=== PATIENT | female | born 1965 | race Caucasian/White ===

== ENCOUNTER → 2018-07-15 | Outpatient (CLI) | payer MEDICARE ==
[~2018-07-15] MED LIST: ACTEMRA SQ; BONIVA150 MG IV; CARVEDILOL12.5 MG PO; CYMBALTA60 MG PO; FOLIC ACID1 MG PO; GABAPENTIN400 MG PO; HYDROCODONE-AP1 EAC2; IOPAMIDOL 370 MG/ML 200 ML INFUS..BTL INJ ONE; NORCO 10-325 T1 EACH PO; NUCYNTA ER50 MG PO; PANTOPRAZOLE SO40 MG PO; SODIUM CHLORIDE 0.9% 100 ML 100 ML ONE; SODIUM CHLORIDE 0.9% 50ML 50 ML ONE; TRAMADOL HCL50 M1; ULTRAM 50MG50 MG PO; VIBERZI PO; Z SULFASALAZINE; Z.0.CYMBALTA60 MG; Z.0.FOLIC ACID1 MG; Z.0.NEXIUM40 MG; Z.0.ORENCIA 250 MG25; Z.0.PLAQUENIL200 MG; Z.0.PREDNISONE5 MG
[2018-07-15 11:49] LABS: BLOOD UREA NITROGEN 9 mg/dL (7-26); BUN/CREATININE RATIO 12 (6-25); CREATININE, SERUM 0.77 mg/dL (0.57-1.11); EST GLOMERULAR FILTRATION RATE > 60 ML/MIN (60-)
--- NOTE | 2018-07-16 07:15 | Diagnostic Imaging Report ---
History: Carotid stenosis Comparison studies:None Technique: Axial images were obtained from the thoracic inlet. Coronal and sagittal images reconstructed from the axial data. Additional multiplanar reformatted images as well as volume rendered 3-D reformats were created from the axial source data. Dose modulation, iterative reconstruction, and/or weight based adjustment of the mA/kV was utilized to reduce the radiation dose to as low as reasonably achievable. Intravenous contrast: 100 cc of Omnipaque 300. If present, stenosis is calculated utilizing the NASCET method which calculates the degree of stenosis with reference to the normal lumen of the carotid artery distal to the stenosis. Findings: Aortic arch and major vessels: Patent. Minimal calcified plaque. No other abnormalities. Common carotid arteries: Patent. No abnormalities. Carotid bulbs: No (0%) stenosis by NASCET criteria bilaterally. Minimal nonstenotic hard and soft plaque at the right carotid bulb. Right internal carotid artery: Patent. No abnormalities. Left internal carotid artery: Patent. No abnormalities. Right vertebral artery: The origin and proximal V1 segment of the right vertebral artery is without gross abnormality but suboptimally evaluated dense contrast within the adjacent vein. Otherwise, no abnormalities. Left vertebral artery: Patent. No abnormalities. The left vertebral artery is dominant. Included intracranial circulation: The internal carotid arteries, A1 and proximal A2 segments of the anterior cerebral arteries, M1 and proximal M2 segments of the middle cerebral arteries, vertebral arteries, basilar artery and proximal posterior cerebral arteries are patent. Anatomical variants include: hypoplastic V4 segment of the right vertebral artery, mild basilar hypoplasia and hypoplastic P1 BACK END ENGINEER segments with bilateral persistent BACK END ENGINEER origins. IMPRESSION: 1. Minimal atherosclerosis at the right carotid bulb. 2. No other arterial abnormalities. 3. No (0% stenosis) at the carotid bulbs by NASCET criteria. 4. Anatomical variants as described. Signed by: Dr. Bryon Reyes M.D. on 07/16/2018 7:12 AM
== END ==
LOC: CT 10:17
PROVIDERS: ATTEND Internal Medicine
DX: I65.29 Occlusion and stenosis of unspecified carotid artery (principal)
CPT/HCPCS: 36415; 70498; 82565; 84520; Q9967

== ENCOUNTER 2021-11-06 14:01 | Emergency (ER) | payer MEDICARE ==
[~2021-11-06] VITALS: Ht 157.5 cm; Wt 76.2 kg
[~2021-11-06 14:01] MED LIST changes: -IOPAMIDOL 370 MG/ML 200 ML INFUS..BTL INJ ONE; -SODIUM CHLORIDE 0.9% 100 ML 100 ML ONE; -SODIUM CHLORIDE 0.9% 50ML 50 ML ONE
[2021-11-06] MEDS ORDERED: Morphine 4mg Syringe 4 MG/ML INJ IV PRN (14:30)
[2021-11-06] MEDS ORDERED: ONDANSETRON HCL INJ 2MG/ML 2ML 2 MG/ML VIAL IV PRN (14:30)
[2021-11-06 14:40] LABS: BASOPHILS # (AUTO) 0.1 (0.0-0.1); BASOPHILS % 0.5 % (0.0-1.0); EOSINOPHILS # (AUTO) 0.3 (0.0-0.4); EOSINOPHILS % 2.6 % (0.0-6.0); HEMATOCRIT 41.6 % (34.2-44.1); HEMOGLOBIN 13.8 g/dL (12.0-16.0); LYMPHOCYTES # (AUTO) 7.6 (1.0-3.2); LYMPHOCYTES % 59.7 % (18.0-39.1); MEAN CORPUSCULAR HEMOGLOBIN 31.1 pg (28-32); MEAN CORPUSCULAR HGB CONC 33.2 g/dL (31-35); MEAN CORPUSCULAR VOLUME 93.7 fL (81-99); MONOCYTES # (AUTO) 0.6 (0.2-0.8); MONOCYTES % 4.8 % (4.4-11.3); NEUTROPHILS % 31.2 % (38.7-80.0); PLATELET COUNT 322 x10e3/uL (140-360); RED BLOOD COUNT 4.44 x10e6/uL (3.6-5.1); RED CELL DISTRIBUTION WIDTH 14.2 % (11.7-14.4)
[2021-11-06 14:59] LABS: ALBUMIN 3.5 g/dL (3.5-5.0); ALBUMIN/GLOBULIN RATIO 1.1 (0.8-2.0); ANION GAP 11.3 mmol/L (8-16); CALCIUM 9.3 mg/dL (8.4-10.2); CREATININE, SERUM 1.04 mg/dL (0.57-1.11); POTASSIUM 3.3 mmol/L (3.5-5.1)
[2021-11-06] MEDS ORDERED: DIPHENHYDRAMINE HCL INJ 50 MG/ML VIAL IV ONE (15:45)
[2021-11-06] MEDS ORDERED: METOCLOPRAMIDE HCL 10 MG/2ML VIAL IV ONE (15:45)
[2021-11-06] MEDS ORDERED: KETOROLAC TROMETHAMINE 30 MG/ML VIAL IV STA (16:26)
[2021-11-06] MEDS ORDERED: KETOROLAC TROME10 MG PEG (16:29)
[2021-11-06] MEDS ORDERED: ONDANSETRON ODT4 MG PO (16:29)
[2021-11-06] MEDS ORDERED: FLOMAX0.4 MG PO (16:29)
[2021-11-06] MEDS ORDERED: TAMSULOSIN HCL 0.4 MG CAP PO ONE (16:30)
[2021-11-06] MEDS ORDERED: CEFDINIR300 MG PO (17:00)
[2021-11-06] MEDS ORDERED: SODIUM CHLORIDE 0.9% 50ML 50 ML ONE (17:43)
[2021-11-06] MEDS ORDERED: IOPAMIDOL 370 MG/ML 200 ML INFUS..BTL INJ ONE (17:43)
[2021-11-06 19:06] LABS: EOSINOPHILS % (MANUAL) 3 % (0-7); LYMPHOCYTES % (MANUAL) 51 % (19-48); MONOCYTES % (MANUAL) 4 % (3.4-9.0); NEUTROPHILS % (MANUAL) 41 % (40-74)
[2021-11-06 19:08] LABS: PLATELET ESTIMATE ADEQUATE; PLATELET MORPHOLOGY COMMENT NORMAL
[2021-11-06 19:09] LABS: RBC MORPHOLOGY COMMENT NORMAL; SMUDGE CELLS FEW
== END 2021-11-06 17:10 | disposition home or self-care (01) ==
LOC: ER 15:37
DX: R10.32 Left lower quadrant pain (principal); N13.2 Hydronephrosis with renal and ureteral calculous obstruction; R11.2 Nausea with vomiting, unspecified; M06.9 Rheumatoid arthritis, unspecified; Z85.42 Personal history of malignant neoplasm of other parts of uterus; Z85.3 Personal history of malignant neoplasm of breast
CPT/HCPCS: 36415; 74177; 80053; 85025; 87086; 99284; J1200; J1885; J2270; J2405; J2765; Q9967

== ENCOUNTER 2022-01-05 15:19 | Emergency (ER) | payer MEDICARE ==
[~2022-01-05] VITALS: Ht 157.5 cm; Wt 76.2 kg
[~2022-01-05 15:19] MED LIST changes: +CEFDINIR300 MG PO; +FLOMAX0.4 MG PO; +KETOROLAC TROME10 MG PEG; +ONDANSETRON ODT4 MG PO
== END 2022-01-05 16:42 | disposition home or self-care (01) ==
LOC: ER 15:27
DX: R06.00 Dyspnea, unspecified (principal); J40 Bronchitis, not specified as acute or chronic; R05.9 Cough, unspecified; Z85.3 Personal history of malignant neoplasm of breast; Z85.42 Personal history of malignant neoplasm of other parts of uterus
CPT/HCPCS: 71046; 99282

== ENCOUNTER 2022-04-21 22:37 | Inpatient (IN) | payer MEDICARE ==
[~2022-04-21] VITALS: Ht 157.5 cm; Wt 87.5 kg
[2022-04-21 23:09] LABS: BASOPHILS # (AUTO) 0.1 (0.0-0.1); BASOPHILS % 0.6 % (0.0-1.0); EOSINOPHILS # (AUTO) 0.1 (0.0-0.4); EOSINOPHILS % 0.8 % (0.0-6.0); HEMATOCRIT 39.6 % (34.2-44.1); HEMOGLOBIN 12.8 g/dL (12.0-16.0); LYMPHOCYTES # (AUTO) 4.4 (1.0-3.2); LYMPHOCYTES % 34.2 % (18.0-39.1); MEAN CORPUSCULAR HEMOGLOBIN 32.2 pg (28-32); MEAN CORPUSCULAR HGB CONC 32.3 g/dL (31-35); MEAN CORPUSCULAR VOLUME 99.5 fL (81-99); MONOCYTES # (AUTO) 0.9 (0.2-0.8); MONOCYTES % 7.1 % (4.4-11.3); NEUTROPHILS # (AUTO) 7.2 (2.1-6.9); NEUTROPHILS % 56.8 % (38.7-80.0); PLATELET COUNT 395 x10e3/uL (140-360); RED BLOOD COUNT 3.98 x10e6/uL (3.6-5.1); RED CELL DISTRIBUTION WIDTH 13.3 % (11.7-14.4)
[2022-04-21 23:20] LABS: ALBUMIN 3.1 g/dL (3.5-5.0); ALBUMIN/GLOBULIN RATIO 0.8 (0.8-2.0); ANION GAP 17.7 mmol/L (8-16); CALCIUM 8.2 mg/dL (8.4-10.2); CREATININE, SERUM 0.96 mg/dL (0.57-1.11); POTASSIUM 3.7 mmol/L (3.5-5.1)
[2022-04-21] MEDS ORDERED: ACETAMINOPHEN 325 MG TAB PO STA (23:20)
[2022-04-21] MEDS ORDERED: SODIUM CHLORIDE 0.9% 1000ML 1,000 ML IV STA (23:29)
[2022-04-22] VITALS (12 sets, daily range): BP systolic 85–100; BP diastolic 47–71
[2022-04-22] MEDS ORDERED: IOPAMIDOL 370 MG/ML 100 ML INFUS..BTL INJ ONE (01:01)
[2022-04-22] MEDS ORDERED: SODIUM CHLORIDE FLUSH 10 ML SYR INJ PRN (01:15)
[2022-04-22] MEDS: FUROSEMIDE INJ 10 MG/ML 4 ML VIAL IV SCH ×2 (01:43→09:00)
[2022-04-22] MEDS: FUROSEMIDE INJ 100 MG in SODIUM CHLORIDE 0.9% 90 ML IV SCH ×2 (12:30→23:09)
[2022-04-22] MEDS ORDERED: BUSPIRONE HCL5 MG PO (13:38)
[2022-04-22] MEDS ORDERED: ALPRAZOLAM0.5 MG PO (13:38)
[2022-04-22] MEDS ORDERED: PROMETHAZINE HC25 M1 PO (13:38)
[2022-04-22] MEDS ORDERED: PREDNISONE10 MG PO (13:38)
[2022-04-22] MEDS ORDERED: BENZONATATE200 MG PO (13:38)
[2022-04-22] MEDS ORDERED: HYDROXYZINE HCL10 MG PO (13:38)
[2022-04-22] MEDS ORDERED: [UNRECOGNIZED DRUG - OTHER] IV (13:43)
[2022-04-22] MEDS ORDERED: BENZONATATE 100 MG CAP PO PRN (13:45)
[2022-04-22] MEDS ORDERED: ALPRAZOLAM 0.5 MG TAB PO PRN (13:50)
[2022-04-22 14:51] LABS: CREATINE KINASE MB 0.7 ng/mL (0-5.0)
[2022-04-22] MEDS: GABAPENTIN 400 MG CAP PO SCH ×2 (15:00→20:40)
[2022-04-22] MEDS: TRAMADOL HCL 50 MG TAB PO PRN (15:13)
[2022-04-22] MEDS: HYDROCODONE/APAP 10MG-325MG TAB PO SCH (20:39)
[2022-04-22] MEDS: BUSPIRONE HCL 5 MG TAB PO SCH (20:40)
[2022-04-23] VITALS (8 sets, daily range): BP systolic 81–110; BP diastolic 62–79
[2022-04-23 07:28] LABS: BASOPHILS # (AUTO) 0.1 (0.0-0.1); BASOPHILS % 0.5 % (0.0-1.0); EOSINOPHILS # (AUTO) 0.3 (0.0-0.4); EOSINOPHILS % 2.2 % (0.0-6.0); HEMATOCRIT 41.2 % (34.2-44.1); HEMOGLOBIN 13.5 g/dL (12.0-16.0); LYMPHOCYTES # (AUTO) 4.1 (1.0-3.2); LYMPHOCYTES % 36.4 % (18.0-39.1); MEAN CORPUSCULAR HEMOGLOBIN 31.5 pg (28-32); MEAN CORPUSCULAR HGB CONC 32.8 g/dL (31-35); MEAN CORPUSCULAR VOLUME 96.3 fL (81-99); MONOCYTES % 8.9 % (4.4-11.3); NEUTROPHILS # (AUTO) 5.8 (2.1-6.9); NEUTROPHILS % 51.6 % (38.7-80.0); PLATELET COUNT 375 x10e3/uL (140-360); RED BLOOD COUNT 4.28 x10e6/uL (3.6-5.1)
[2022-04-23] MEDS ORDERED: PANTOPRAZOLE SOD 40 MG TABEC PO SCH (07:30)
[2022-04-23 07:57] LABS: ALBUMIN/GLOBULIN RATIO 0.7 (0.8-2.0); ANION GAP 20.1 mmol/L (8-16); CALCIUM 7.1 mg/dL (8.4-10.2); CREATININE, SERUM 1.12 mg/dL (0.57-1.11); POTASSIUM 3.1 mmol/L (3.5-5.1)
[2022-04-23] MEDS ORDERED: POTASSIUM CHLORIDE 20MEQ/100ML 200 ML IV ONE (08:45)
[2022-04-23] MEDS: BUSPIRONE HCL 5 MG TAB PO SCH ×3 (09:28→21:10)
[2022-04-23] MEDS: FOLIC ACID 1 MG TAB PO SCH (09:28)
[2022-04-23] MEDS: DULOXETINE HCL 30 MG DELAYED RELEASE PO SCH (09:28)
[2022-04-23] MEDS: GABAPENTIN 400 MG CAP PO SCH ×3 (09:28→21:10)
[2022-04-23] MEDS: TRAMADOL HCL 50 MG TAB PO PRN ×2 (09:42→16:21)
[2022-04-23] MEDS: ONDANSETRON HCL INJ 2MG/ML 2ML 2 MG/ML VIAL IV PRN ×2 (10:48→21:10)
[2022-04-23] MEDS: PANTOPRAZOLE SOD 40 MG TABEC PO SCH (16:20)
[2022-04-23] MEDS ORDERED: SODIUM CHLORIDE 0.9% 250ML 250 ML ONE (17:45)
[2022-04-23] MEDS ORDERED: POTASSIUM CHLORIDE 20 MEQ TAB CR PO ONE (19:00)
[2022-04-23] MEDS: FUROSEMIDE INJ 10 MG/ML 4 ML VIAL IV SCH (21:10)
[2022-04-23] MEDS: HYDROCODONE/APAP 10MG-325MG TAB PO SCH (21:14)
[2022-04-24] VITALS (7 sets, daily range): BP systolic 88–108; BP diastolic 50–96
[2022-04-24 07:45] LABS: BASOPHILS # (AUTO) 0.1 (0.0-0.1); BASOPHILS % 0.6 % (0.0-1.0); EOSINOPHILS # (AUTO) 0.4 (0.0-0.4); EOSINOPHILS % 3.1 % (0.0-6.0); HEMATOCRIT 38.7 % (34.2-44.1); HEMOGLOBIN 13.8 g/dL (12.0-16.0); LYMPHOCYTES # (AUTO) 5.5 (1.0-3.2); LYMPHOCYTES % 47.4 % (18.0-39.1); MEAN CORPUSCULAR HEMOGLOBIN 35.4 pg (28-32); MEAN CORPUSCULAR HGB CONC 35.7 g/dL (31-35); MEAN CORPUSCULAR VOLUME 99.2 fL (81-99); MONOCYTES % 8.5 % (4.4-11.3); NEUTROPHILS # (AUTO) 4.6 (2.1-6.9); NEUTROPHILS % 40.1 % (38.7-80.0); PLATELET COUNT 411 x10e3/uL (140-360); RED CELL DISTRIBUTION WIDTH 13.5 % (11.7-14.4)
[2022-04-24] MEDS: FUROSEMIDE INJ 10 MG/ML 4 ML VIAL IV SCH (08:16)
[2022-04-24] MEDS: PANTOPRAZOLE SOD 40 MG TABEC PO SCH ×2 (08:17→16:26)
[2022-04-24] MEDS: DULOXETINE HCL 30 MG DELAYED RELEASE PO SCH (08:17)
[2022-04-24] MEDS: FOLIC ACID 1 MG TAB PO SCH (08:17)
[2022-04-24] MEDS: GABAPENTIN 400 MG CAP PO SCH ×3 (08:17→21:45)
[2022-04-24] MEDS: TRAMADOL HCL 50 MG TAB PO PRN ×2 (08:18→15:39)
[2022-04-24] MEDS: BUSPIRONE HCL 5 MG TAB PO SCH ×3 (08:18→21:45)
[2022-04-24 08:21] LABS: ALBUMIN/GLOBULIN RATIO 0.7 (0.8-2.0); ANION GAP 21.4 mmol/L (8-16); CALCIUM 7.4 mg/dL (8.4-10.2); CREATININE, SERUM 1.56 mg/dL (0.57-1.11); POTASSIUM 3.4 mmol/L (3.5-5.1)
[2022-04-24 08:48] LABS: BAND NEUTROPHILS % (MANUAL) 1 %; EOSINOPHILS % (MANUAL) 4 % (0-7); LYMPHOCYTES % (MANUAL) 49 % (19-48); MONOCYTES % (MANUAL) 6 % (3.4-9.0); NEUTROPHILS % (MANUAL) 38 % (40-74); PLATELET ESTIMATE ADEQUATE; PLATELET MORPHOLOGY COMMENT NORMAL; RBC MORPHOLOGY COMMENT NORMAL
[2022-04-24 18:48] LABS: ANION GAP 19.3 mmol/L (8-16); CALCIUM 7.3 mg/dL (8.4-10.2); CREATININE, SERUM 1.5 mg/dL (0.57-1.11); POTASSIUM 3.3 mmol/L (3.5-5.1)
[2022-04-25] VITALS (8 sets, daily range): BP systolic 100–123; BP diastolic 55–71
[2022-04-25] MEDS: HYDROCODONE/APAP 10MG-325MG TAB PO SCH ×2 (01:20→22:24)
[2022-04-25 06:28] LABS: BASOPHILS # (AUTO) 0.1 (0.0-0.1); BASOPHILS % 0.5 % (0.0-1.0); EOSINOPHILS # (AUTO) 0.6 (0.0-0.4); EOSINOPHILS % 5.3 % (0.0-6.0); HEMATOCRIT 36.9 % (34.2-44.1); HEMOGLOBIN 13.1 g/dL (12.0-16.0); LYMPHOCYTES # (AUTO) 5.2 (1.0-3.2); LYMPHOCYTES % 44.4 % (18.0-39.1); MEAN CORPUSCULAR HEMOGLOBIN 34.8 pg (28-32); MEAN CORPUSCULAR HGB CONC 35.5 g/dL (31-35); MEAN CORPUSCULAR VOLUME 98.1 fL (81-99); MONOCYTES # (AUTO) 1.1 (0.2-0.8); MONOCYTES % 8.9 % (4.4-11.3); NEUTROPHILS # (AUTO) 4.8 (2.1-6.9); NEUTROPHILS % 40.4 % (38.7-80.0); PLATELET COUNT 387 x10e3/uL (140-360); RED BLOOD COUNT 3.76 x10e6/uL (3.6-5.1); RED CELL DISTRIBUTION WIDTH 13.2 % (11.7-14.4)
[2022-04-25 07:01] LABS: ALBUMIN 2.9 g/dL (3.5-5.0); ALBUMIN/GLOBULIN RATIO 0.7 (0.8-2.0); ANION GAP 17.2 mmol/L (8-16); CALCIUM 7.4 mg/dL (8.4-10.2); CREATININE, SERUM 1.17 mg/dL (0.57-1.11); POTASSIUM 3.2 mmol/L (3.5-5.1)
[2022-04-25] MEDS: GABAPENTIN 400 MG CAP PO SCH ×3 (08:58→22:24)
[2022-04-25] MEDS ORDERED: FUROSEMIDE INJ 10 MG/ML 4 ML VIAL IV SCH (09:00)
[2022-04-25] MEDS: FOLIC ACID 1 MG TAB PO SCH (09:00)
[2022-04-25] MEDS: METOPROLOL SUCCINATE 25 MG TAB XL PO SCH (09:01)
[2022-04-25] MEDS: BUSPIRONE HCL 5 MG TAB PO SCH ×3 (09:01→22:24)
[2022-04-25] MEDS: DULOXETINE HCL 30 MG DELAYED RELEASE PO SCH (09:02)
[2022-04-25] MEDS: PANTOPRAZOLE SOD 40 MG TABEC PO SCH ×2 (09:02→18:36)
[2022-04-26] VITALS (8 sets, daily range): BP systolic 98–119; BP diastolic 47–87
[2022-04-26] MEDS: GABAPENTIN 400 MG CAP PO SCH ×3 (09:00→20:16)
[2022-04-26] MEDS: FOLIC ACID 1 MG TAB PO SCH (09:00)
[2022-04-26] MEDS: BUSPIRONE HCL 5 MG TAB PO SCH ×3 (09:00→20:17)
[2022-04-26] MEDS: PANTOPRAZOLE SOD 40 MG TABEC PO SCH ×2 (09:00→20:19)
[2022-04-26] MEDS: METOPROLOL SUCCINATE 25 MG TAB XL PO SCH (09:00)
[2022-04-26 09:52] LABS: ANION GAP 13.5 mmol/L (8-16); CALCIUM 7.5 mg/dL (8.4-10.2); CREATININE, SERUM 0.86 mg/dL (0.57-1.11); POTASSIUM 3.5 mmol/L (3.5-5.1)
[2022-04-26] MEDS ORDERED: LIDOCAINE HCL 2% LOCAL 20 ML VIAL ONE (15:48)
[2022-04-26] MEDS ORDERED: HEPARIN SOD/SOD CHLORIDE 2,000 ML ONE (15:48)
[2022-04-26] MEDS ORDERED: IOPAMIDOL 370 MG/ML 100 ML INFUS..BTL INJ ONE (15:53)
[2022-04-26] MEDS ORDERED: VERAPAMIL HCL 2.5 MG/ML 2 ML VIAL ONE (15:56)
[2022-04-26] MEDS ORDERED: SODIUM CHLORIDE 0.9% 1000ML 1,000 ML ONE (15:57)
[2022-04-26] MEDS ORDERED: MIDAZOLAM HCL 2 MG/2 ML VIAL ONE ×2 (15:57→16:21)
[2022-04-26] MEDS ORDERED: FENTANYL CITRATE/PF 100MCG/2 ML INJ ONE (15:57)
[2022-04-26] MEDS ORDERED: HEPARIN SOD (PORCINE) 1000 UNIT/ML 30ML ONE (15:58)
[2022-04-26] MEDS: LISINOPRIL 2.5 MG TAB PO SCH (16:30)
[2022-04-26] MEDS: HYDROCODONE/APAP 10MG-325MG TAB PO SCH (20:17)
[2022-04-26] MEDS: DULOXETINE HCL 30 MG DELAYED RELEASE PO SCH (20:19)
[2022-04-27 00:32] VITALS: BP 93/62
[2022-04-27 04:23] VITALS: BP 103/58
[2022-04-27 08:00] VITALS: BP 96/80
[2022-04-27 08:22] VITALS: BP 144/95
[2022-04-27] MEDS: LISINOPRIL 2.5 MG TAB PO SCH (09:00)
[2022-04-27] MEDS: PANTOPRAZOLE SOD 40 MG TABEC PO SCH (09:10)
[2022-04-27] MEDS: DULOXETINE HCL 30 MG DELAYED RELEASE PO SCH (09:10)
[2022-04-27] MEDS: BUSPIRONE HCL 5 MG TAB PO SCH (09:10)
[2022-04-27] MEDS: FOLIC ACID 1 MG TAB PO SCH (09:10)
[2022-04-27] MEDS: GABAPENTIN 400 MG CAP PO SCH (09:20)
[2022-04-27] MEDS ORDERED: PRAVASTATIN SOD20 MG PO (10:09)
[2022-04-27] MEDS ORDERED: TOPROL XL25 MG PO (10:09)
[2022-04-27] MEDS ORDERED: CEPHALEXIN500 MG PO (10:09)
[2022-04-27] MEDS ORDERED: ECOTRIN81 MG PO (10:09)
[2022-04-27] MEDS ORDERED: LISINOPRIL2.5 MG PO (10:09)
[2022-04-27 11:54] VITALS: BP 99/88
== END 2022-04-27 14:11 | disposition home or self-care (01) | DRG 871 ==
LOC: ER 22:43 → ERHOLD 04-22 01:25 → ICU 04-22 03:11 → MED/SURG3 04-23 15:04
PROVIDERS: ADMIT Internal Medicine; ATTEND Internal Medicine
PROC: 4A023N7 Measurement of Cardiac Sampling and Pressure, Left Heart, Percutaneous Approach (ICD-10-PCS; principal; 2022-04-22)
PROC: B2111ZZ Fluoroscopy of Multiple Coronary Arteries using Low Osmolar Contrast (ICD-10-PCS; 2022-04-22)
PROC: 02HV33Z Insertion of Infusion Device into Superior Vena Cava, Percutaneous Approach (ICD-10-PCS; 2022-04-22)
PROC: 3E04329 Introduction of Other Anti-infective into Central Vein, Percutaneous Approach (ICD-10-PCS; 2022-04-22)
DX: A41.9 Sepsis, unspecified organism (principal); I50.23 Acute on chronic systolic (congestive) heart failure; J96.01 Acute respiratory failure with hypoxia; N17.9 Acute kidney failure, unspecified; I11.0 Hypertensive heart disease with heart failure; R65.20 Severe sepsis without septic shock; K76.0 Fatty (change of) liver, not elsewhere classified; M06.9 Rheumatoid arthritis, unspecified; R60.0 Localized edema; Z85.3 Personal history of malignant neoplasm of breast; E78.5 Hyperlipidemia, unspecified; I44.7 Left bundle-branch block, unspecified; E87.6 Hypokalemia
CPT/HCPCS: 36415; 36569; 71045; 71260; 76937; 80048; 80053; 82550; 82553; 83605; 83690; 83735; 83880; 84484; 85025; 85379; 87040; 93005; 93306; 93458; 94799; 99152; 99153; 99251; 99284; C1887; J1644; J1940; J2001; J2250; J2405; J2543; J3010; J3480; J7030; J7050; Q9967

== ENCOUNTER 2022-07-18 17:34 | Inpatient (IN) | payer MEDICARE ==
[~2022-07-18] VITALS: Ht 157.5 cm; Wt 85.3 kg
[~2022-07-18 17:34] MED LIST changes: +ALPRAZOLAM0.5 MG PO; +BENZONATATE200 MG PO; +BUSPIRONE HCL5 MG PO; +CEPHALEXIN500 MG PO; +ECOTRIN81 MG PO; +HYDROXYZINE HCL10 MG PO; +LISINOPRIL2.5 MG PO; +PRAVASTATIN SOD20 MG PO; +PREDNISONE10 MG PO; +PROMETHAZINE HC25 M1 PO; +TOPROL XL25 MG PO; +[UNRECOGNIZED DRUG - OTHER] IV
[2022-07-18] MEDS ORDERED: SODIUM CHLORIDE 0.9% 500ML 500 ML IV ONE ×2 (18:00→19:30)
[2022-07-18 18:14] LABS: BASOPHILS % 0.5 % (0.0-1.0); EOSINOPHILS # (AUTO) 0.1 (0.0-0.4); EOSINOPHILS % 1.8 % (0.0-6.0); HEMATOCRIT 38.4 % (34.2-44.1); HEMOGLOBIN 12.5 g/dL (12.0-16.0); LYMPHOCYTES # (AUTO) 4.6 (1.0-3.2); MEAN CORPUSCULAR HEMOGLOBIN 30.6 pg (28-32); MEAN CORPUSCULAR HGB CONC 32.6 g/dL (31-35); MEAN CORPUSCULAR VOLUME 94.1 fL (81-99); MONOCYTES # (AUTO) 0.3 (0.2-0.8); MONOCYTES % 3.7 % (4.4-11.3); NEUTROPHILS # (AUTO) 2.6 (2.1-6.9); NEUTROPHILS % 33.6 % (38.7-80.0); PLATELET COUNT 232 x10e3/uL (140-360); RED BLOOD COUNT 4.08 x10e6/uL (3.6-5.1); RED CELL DISTRIBUTION WIDTH 15.9 % (11.7-14.4)
[2022-07-18 18:28] LABS: ALBUMIN 3.5 g/dL (3.5-5.0); ALBUMIN/GLOBULIN RATIO 1.1 (0.8-2.0); ANION GAP 14.8 mmol/L (8-16); CALCIUM 9.2 mg/dL (8.4-10.2); CREATININE, SERUM 1.5 mg/dL (0.57-1.11); POTASSIUM 3.8 mmol/L (3.5-5.1)
[2022-07-18] MEDS ORDERED: SODIUM CHLORIDE 0.9% 1000ML 1,000 ML IV ONE ×2 (19:00→21:30)
[2022-07-18] MEDS ORDERED: IOPAMIDOL 370 MG/ML 100 ML INFUS..BTL INJ ONE (19:20)
[2022-07-18] MEDS ORDERED: SODIUM CHLORIDE FLUSH 10 ML SYR INJ PRN (21:30)
[2022-07-18 23:30] VITALS: BP 94/51
[2022-07-18] MEDS ORDERED: ACETAMINOPHEN 325 MG TAB PO PRN (23:30)
[2022-07-18 23:34] LABS: CLARITY,URINE CLEAR (CLEAR); COLOR,URINE YELLOW (YELLOW); KETONES,URINE NEGATIVE (NEGATIVE); LEUKOCYTE ESTERASE ,URINE NEGATIVE (NEGATIVE); NITRITE,URINE NEGATIVE (NEGATIVE); PROTEIN,URINE DIPSTICK NEGATIVE (NEGATIVE); URINE UROBILINOGEN 0.2 mg/dL (0.2 - 1)
[2022-07-18 23:36] VITALS: BP 77/51
[2022-07-18 23:42] LABS: BACTERIA,URINE FEW /HPF; EPITHELIAL CELLS,URINE MODERATE /LPF; RBC,URINE 0-5 /HPF (0-5); WBC,URINE (MAN) 0-5 /HPF (0-5)
[2022-07-18 23:45] VITALS: BP 76/40
[2022-07-19] VITALS (29 sets, daily range): BP systolic 71–108; BP diastolic 45–79
[2022-07-19 01:34] LABS: CREATINE KINASE 13 IU/L (29-168)
[2022-07-19 05:11] LABS: BASOPHILS % 0.4 % (0.0-1.0); EOSINOPHILS # (AUTO) 0.2 (0.0-0.4); EOSINOPHILS % 2.1 % (0.0-6.0); HEMATOCRIT 33.2 % (34.2-44.1); HEMOGLOBIN 10.6 g/dL (12.0-16.0); LYMPHOCYTES # (AUTO) 4.9 (1.0-3.2); LYMPHOCYTES % 67.6 % (18.0-39.1); MEAN CORPUSCULAR HEMOGLOBIN 29.9 pg (28-32); MEAN CORPUSCULAR HGB CONC 31.9 g/dL (31-35); MEAN CORPUSCULAR VOLUME 93.5 fL (81-99); MONOCYTES # (AUTO) 0.2 (0.2-0.8); MONOCYTES % 2.2 % (4.4-11.3); NEUTROPHILS % 27.4 % (38.7-80.0); PLATELET COUNT 184 x10e3/uL (140-360); RED BLOOD COUNT 3.55 x10e6/uL (3.6-5.1); RED CELL DISTRIBUTION WIDTH 15.9 % (11.7-14.4)
[2022-07-19 05:28] LABS: ALBUMIN 2.8 g/dL (3.5-5.0); ALBUMIN/GLOBULIN RATIO 1.2 (0.8-2.0); ANION GAP 12.3 mmol/L (8-16); CALCIUM 8.3 mg/dL (8.4-10.2); CREATININE, SERUM 1.01 mg/dL (0.57-1.11); POTASSIUM 3.3 mmol/L (3.5-5.1)
[2022-07-19] MEDS ORDERED: LOPERAMIDE HCL 2 MG CAP PO PRN (09:30)
[2022-07-19] MEDS ORDERED: ONDANSETRON HCL INJ 2MG/ML 2ML 2 MG/ML VIAL IV PRN (09:30)
[2022-07-19] MEDS ORDERED: HYDROCODONE/APAP 10MG-325MG TAB PO PRN (11:30)
[2022-07-19] MEDS: ASPIRIN 81 MG ENTERIC COATED PO SCH (11:39)
[2022-07-19] MEDS: FOLIC ACID 1 MG TAB PO SCH (11:40)
[2022-07-19 13:12] LABS: CREATINE KINASE 20 IU/L (29-168)
[2022-07-19] MEDS ORDERED: POTASSIUM CHLORIDE 20 MEQ TAB CR PO ONE (15:15)
[2022-07-19] MEDS ORDERED: METHOTREXATE2.5 MG PO (16:22)
[2022-07-19] MEDS ORDERED: EXCEDRIN MIGRA1 EAC3 PO (16:22)
[2022-07-19] MEDS ORDERED: CARVEDILOL3.125 MG PO (16:22)
[2022-07-19] MEDS ORDERED: FUROSEMIDE40 MG PO (16:22)
[2022-07-19] MEDS ORDERED: IPRATROPIUM (16:22)
[2022-07-19] MEDS ORDERED: CYCLOBENZAPRINE10 MG PO (16:22)
[2022-07-19] MEDS ORDERED: PLAQUENIL200 MG PO (16:22)
[2022-07-19] MEDS ORDERED: DOXEPIN HCL25 MG PO (16:22)
[2022-07-19] MEDS ORDERED: JARDIANCE10 MG PO (16:22)
[2022-07-19] MEDS: POTASSIUM CHLORIDE 20 MEQ TAB CR PO ONE ×2 (18:20→18:34)
[2022-07-19] MEDS ORDERED: POTASSIUM CHLORIDE 10MEQ EA PO ONE (20:00)
[2022-07-19 20:05] LABS: CREATINE KINASE MB 0.7 ng/mL (0-5.0)
[2022-07-19] MEDS ORDERED: PRAVASTATIN 20 MG TAB PO SCH (21:00)
[2022-07-20] VITALS: BP 104/70
[2022-07-20 04:00] VITALS: BP 101/54
[2022-07-20 05:57] LABS: BASOPHILS % 0.3 % (0.0-1.0); EOSINOPHILS # (AUTO) 0.3 (0.0-0.4); EOSINOPHILS % 4.1 % (0.0-6.0); HEMATOCRIT 33.8 % (34.2-44.1); HEMOGLOBIN 10.7 g/dL (12.0-16.0); LYMPHOCYTES # (AUTO) 3.6 (1.0-3.2); LYMPHOCYTES % 54.8 % (18.0-39.1); MEAN CORPUSCULAR HEMOGLOBIN 29.3 pg (28-32); MEAN CORPUSCULAR HGB CONC 31.7 g/dL (31-35); MEAN CORPUSCULAR VOLUME 92.6 fL (81-99); MONOCYTES # (AUTO) 0.2 (0.2-0.8); MONOCYTES % 2.7 % (4.4-11.3); NEUTROPHILS # (AUTO) 2.5 (2.1-6.9); NEUTROPHILS % 37.9 % (38.7-80.0); PLATELET COUNT 173 x10e3/uL (140-360); RED BLOOD COUNT 3.65 x10e6/uL (3.6-5.1); RED CELL DISTRIBUTION WIDTH 15.4 % (11.7-14.4)
[2022-07-20 06:18] LABS: ALBUMIN 2.8 g/dL (3.5-5.0); ANION GAP 10.7 mmol/L (8-16); CALCIUM 8.6 mg/dL (8.4-10.2); CREATININE, SERUM 0.84 mg/dL (0.57-1.11); POTASSIUM 3.7 mmol/L (3.5-5.1)
[2022-07-20 07:37] VITALS: BP 110/67
[2022-07-20] MEDS ORDERED: FUROSEMIDE 40 MG TAB PO SCH (09:00)
[2022-07-20] MEDS: ASPIRIN 81 MG ENTERIC COATED PO SCH (09:19)
[2022-07-20] MEDS: FOLIC ACID 1 MG TAB PO SCH (09:19)
[2022-07-20 09:21] VITALS: BP 110/67
[2022-07-20] MEDS ORDERED: PANTOPRAZOLE SOD 40 MG TABEC PO SCH (10:00)
[2022-07-20] MEDS ORDERED: ONDANSETRON HCL 4 MG ORAL DISINTEGRATING TAB PO PRN (11:15)
[2022-07-20 11:34] VITALS: BP 107/89
[2022-07-20] MEDS ORDERED: LISINOPRIL2.5 MG PO (11:38)
== END 2022-07-20 13:31 | disposition home or self-care (01) | DRG 291 ==
LOC: ER 17:42 → ERHOLD 21:33 → ICU 23:31 → MED/SURG2 07-19 18:54
PROVIDERS: ADMIT Internal Medicine; ATTEND Internal Medicine
DX: I11.0 Hypertensive heart disease with heart failure (principal); I50.23 Acute on chronic systolic (congestive) heart failure; N17.9 Acute kidney failure, unspecified; R09.02 Hypoxemia; E86.1 Hypovolemia; M06.9 Rheumatoid arthritis, unspecified; E87.6 Hypokalemia; E86.0 Dehydration; F17.200 Nicotine dependence, unspecified, uncomplicated; Z87.440 Personal history of urinary (tract) infections; Z85.42 Personal history of malignant neoplasm of other parts of uterus; Z85.3 Personal history of malignant neoplasm of breast; Z20.822 Contact with and (suspected) exposure to COVID-19
CPT/HCPCS: 0223U; 36415; 36569; 71045; 71260; 80053; 81001; 82550; 82553; 83605; 83880; 84484; 85025; 85379; 87040; 93005; 94799; 99284; J7030; J7040; Q9967

== ENCOUNTER 2023-04-12 20:04 | Observation (INO) | payer MEDICARE ==
[~2023-04-12] VITALS: Ht 160 cm; Wt 78.9 kg
[~2023-04-12 20:04] MED LIST changes: +CARVEDILOL3.125 MG PO; +CYCLOBENZAPRINE10 MG PO; +DOXEPIN HCL25 MG PO; +EXCEDRIN MIGRA1 EAC3 PO; +FUROSEMIDE40 MG PO; +IPRATROPIUM; +JARDIANCE10 MG PO; +METHOTREXATE2.5 MG PO; +PLAQUENIL200 MG PO
[2023-04-12] MEDS ORDERED: ONDANSETRON HCL INJ 2MG/ML 2ML 2 MG/ML VIAL IV STA (20:18)
[2023-04-12] MEDS ORDERED: ONDANSETRON HCL INJ 2MG/ML 2ML 2 MG/ML VIAL ONE (20:19)
[2023-04-12 20:28] LABS: BASOPHILS % 0.4 % (0.0-1.0); EOSINOPHILS # (AUTO) 0.2 (0.0-0.4); EOSINOPHILS % 2.3 % (0.0-6.0); HEMATOCRIT 38.3 % (34.2-44.1); HEMOGLOBIN 12.7 g/dL (12.0-16.0); LYMPHOCYTES # (AUTO) 2.9 (1.0-3.2); LYMPHOCYTES % 42.3 % (18.0-39.1); MEAN CORPUSCULAR HEMOGLOBIN 29.4 pg (28-32); MEAN CORPUSCULAR HGB CONC 33.2 g/dL (31-35); MEAN CORPUSCULAR VOLUME 88.7 fL (81-99); MONOCYTES # (AUTO) 0.5 (0.2-0.8); MONOCYTES % 7.1 % (4.4-11.3); NEUTROPHILS # (AUTO) 3.3 (2.1-6.9); NEUTROPHILS % 47.8 % (38.7-80.0); PLATELET COUNT 226 x10e3/uL (140-360); RED BLOOD COUNT 4.32 x10e6/uL (3.6-5.1); RED CELL DISTRIBUTION WIDTH 17.3 % (11.7-14.4)
[2023-04-12 20:46] LABS: ALBUMIN 3.7 g/dL (3.5-5.0); ALBUMIN/GLOBULIN RATIO 1.4 (0.8-2.0); ANION GAP 15.7 mmol/L (8-16); CREATININE, SERUM 1.04 mg/dL (0.57-1.11); POTASSIUM 3.7 mmol/L (3.5-5.1)
[2023-04-12] MEDS ORDERED: ONDANSETRON HCL INJ 2MG/ML 2ML 2 MG/ML VIAL IV PRN (21:30)
[2023-04-12] MEDS ORDERED: SODIUM CHLORIDE FLUSH 10 ML SYR INJ PRN (21:30)
[2023-04-12 23:00] VITALS: BP 102/48; PULSE 85; RESP 18; TEMP 98.3; O2SAT 97
[2023-04-13] VITALS: BP 100/52; PULSE 74; RESP 18; TEMP 98; O2SAT 98
[2023-04-13] MEDS ORDERED: AMBIEN10 MG PO (00:18)
[2023-04-13] MEDS ORDERED: HYDROCODONE/APAP 10MG-325MG TAB PO PRN (01:00)
[2023-04-13] MEDS ORDERED: HYDROXYZINE HCL 25 MG TAB PO PRN (01:00)
[2023-04-13] MEDS ORDERED: ZOLPIDEM TARTRATE 10 MG TAB PO SCH (01:00)
[2023-04-13] MEDS ORDERED: PROMETHAZINE HCL 25 MG TAB PO PRN (01:00)
[2023-04-13] MEDS ORDERED: ALPRAZOLAM 0.5 MG TAB PO PRN (01:00)
[2023-04-13 04:00] VITALS: BP 103/55; PULSE 67; RESP 18; TEMP 98.4; O2SAT 98
[2023-04-13 06:07] LABS: CHOL/HDL RATIO 3.8 (3.0-3.6); CREATINE KINASE 25 IU/L (29-168)
[2023-04-13] MEDS ORDERED: FOLIC ACID 1 MG TAB PO SCH (09:00)
[2023-04-13] MEDS ORDERED: BENZONATATE 100 MG CAP PO SCH (09:00)
[2023-04-13] MEDS ORDERED: PANTOPRAZOLE SOD 40 MG TABEC PO SCH (09:00)
[2023-04-13] MEDS ORDERED: BUSPIRONE HCL 5 MG TAB PO SCH (09:00)
[2023-04-13] MEDS ORDERED: LISINOPRIL 2.5 MG TAB PO SCH (09:00)
[2023-04-13] MEDS ORDERED: GABAPENTIN 400 MG CAP PO SCH (09:00)
[2023-04-13] MEDS ORDERED: ASPIRIN 81 MG ENTERIC COATED PO SCH ×2 (09:00)
[2023-04-13] MEDS ORDERED: DULOXETINE HCL 30 MG DELAYED RELEASE PO SCH (09:00)
[2023-04-13 09:17] VITALS: BP 103/55; PULSE 67; RESP 18; TEMP 98.4; O2SAT 98
[2023-04-13 09:50] VITALS: BP 114/69; PULSE 91; RESP 16; TEMP 98.4; O2SAT 99
[2023-04-13 12:24] VITALS: BP 98/51; PULSE 86; RESP 17; TEMP 98.1; O2SAT 98
[2023-04-13] MEDS ORDERED: CYCLOBENZAPRINE HCL 10 MG TAB PO SCH (21:00)
[2023-04-13] MEDS ORDERED: PRAVASTATIN 20 MG TAB PO SCH (21:00)
[2023-04-14] MEDS ORDERED: ASPIRIN 81 MG ENTERIC COATED PO SCH (09:00)
[2023-04-17] MEDS ORDERED: METHOTREXATE SOD 2.5 MG TAB PO SCH (09:00)
== END 2023-04-13 12:59 | disposition home or self-care (01) ==
LOC: ER 20:10 → ERHOLD 21:44 → MED/SURG 22:55
PROVIDERS: ADMIT Internal Medicine; ATTEND Internal Medicine
DX: R07.89 Other chest pain (principal); F41.9 Anxiety disorder, unspecified; I11.0 Hypertensive heart disease with heart failure; I50.9 Heart failure, unspecified; E78.5 Hyperlipidemia, unspecified; M06.9 Rheumatoid arthritis, unspecified; I95.9 Hypotension, unspecified
CPT/HCPCS: 36415 ×2; 71045; 80053; 80061; 82550; 83880; 84484 ×2; 85025; 93005; 99284; G0378 ×2; J2405; S0164; U0002